=== PATIENT | male | born 1960 | race Caucasian/White ===

== ENCOUNTER 2022-10-22 12:38 | Observation (INO) | payer OTHER, SELFPAY ==
[2022-10-22] VITALS (62 sets, daily range): BP systolic 134–165; BP diastolic 64–89; PULSE 79–101; RESP 12–30; TEMP 37.1–37.5; O2SAT 94–98
--- NOTE | 2022-10-22 | DI.CT_ITS ---
Exam(s) CT CHEST PE CTA EXAM: CT CHEST PE CTA CLINICAL HISTORY: CP. TECHNIQUE: Imaging Protocol: Axial CT angiography was performed with multi-slice acquisition and mu lti-planar reconstructions as well as axial, coronal and sagittal MIP reconstructions. CONTRAST MATERIAL: Intravenous: Omnipaque 350 Contrast volume:100 ml COMPARISON: CR,XR XR CHEST 2V PA LATERAL from 10/22/2022 FINDINGS: Pulmonary Arteries: No evidence of filling defect to suggest pulmonary emboli. Tracheobronchial tree: Patent where visualized. Mediastinum and Mahnaz: No dominant adenopathy or fluid collection. Pulmonary parenchyma: No consolidation or dominant measurable mass. Two adjacent 5 millimeter nodules seen posteriorly, abutting the pleura of the right lower lobe. No suspicious features. Minimal sca rring posterior left lung base. Pleura: No effusion or pneumothorax. Heart: The heart is not dilated. No coronary artery calcifications are seen. Aorta: Thoracic aorta non-dilated. No aneurysm. No dissection. Upper abdomen: Unremarkable. Bones: Unremarkable for age. Tubes, Catheters, and Lines: 9 IMPRESSION: No evidence of pulmonary embolism. Incidental 5 millimeter nodules in the right lower lobe, likely granulomas. If the patient is at hig h risk for lung cancer, follow-up low-dose screening CT could be considered in 1 year. Lowest patien ts, no further follow-up recommended. RADIATION DOSE DELIVERED: 640.58mGy.cm Total DLP DATA REPOSITORY: All CT scans at this facility are submitted to the National Radiology Data Registry (NRDR) Dose Index Registry (DIR) with the [employer] (ACR). RADIATION OPTIMIZATION: All CT scans at this facility use at least one of these dose optimization te chniques: automated exposure control; mA and/or kV adjustment per patient size (includes targeted exa ms where dose is matched to clinical indication); or iterative reconstruction.
--- NOTE | 2022-10-22 12:30 | RT.EKG_ITS ---
APPROVED REPORT Exam: Resting ECG Reason for Exam: chest pain Patient Location: E HR:86 bpm ECG Measurements Heart Rate 86 AXIS NC 195 P 50 QRSd 112 QRS -37 QT 355 T 43 QTc 424 Conclusion Sinus rhythm...normal P axis, V-rate 60- 99 Incomplete left bundle branch block...QRSd>110mS, terminal axis(-90,-1) Borderline ST elevation, anterior leads...ST >0.15mV in V1-V4 Normal sinus rhythm at a rate of 86 with left axis deviation and incomplete left bundle branch block. T wave flattening in aVL. NC and QTc within normal limits. No acute injury pattern. No prior fo r comparison.
--- NOTE | 2022-10-22 13:13 | ED.GENADUL_ITS ---
Discharge Plan Disposition Patient Disposition: Admit to [facility] Discharge Details Clinical Impression: Chest pain, Flattened T wave Primary Care Provider: Maria Antonia,Local ED Provider: Jorge Singh Medical Decision Making This is an overall well-appearing normothermic and not tachycardic 62-year-old male with chest pain shortness of breath while walking concerning for PE versus ACS. No vomiting to suggest increased risk for esophageal rupture. No significant cough nor fevers to suggest pneumonia. No rash to chest to suggest zoster. No tearing quality to suggest aortic dissection. Not hypotensive nor tachycardic to suggest tamponade. Equal breath sounds no trauma so doubt pneumothorax. Patient is on rivaroxaban prophylactically given prior PE. We will plan on obtaining a D-dimer to assess for risk of PE. Patient's pain is concerning also for the possibility of ACS as it radiates up into his jaw. If his troponin is negative we will plan on recommending hospitalization for stress testing given risk factors of obesity and age though ECG is not frankly ischemic. His ECG is concerning for T wave flattening in aVL. HEART SCORE Chest pain Diagnostic Protocol: - [History/Physical/Gestalt: Moderately Suspicious (+1)] - [EKG: Nonspecific repolarization (+1)] - [AGE: 45-65 (+1)] - [RISK FACTORS: 1 - 2 risk factors (+1)] - [TROPONIN: <= normal limit (0)] - TOTAL SCORE: 4 - Risk Factors: obesity 2:41 PM Basic metabolic panel with creatinine at 1.4. No prior for comparison.Very mild hypomagnesemia with a serum magnesium of 1.7 mg/dL. D-dimer negative when adjusted for age. CBC with no anemia or thrombocytopenia noted leukocytosis. Troponin negative. 4:07 PM I spoke with Dr. Haider who graciously accepted the patient for hospitalization. She wanted the patient to be held for repeat troponin. 6:10 PM Repeat troponin negative. We will reach out to hospitalist team to have the patient hospitalized. 7:30 PM I spoke with Dr. Casillas from the hospitalist team who accepted the patient for hospitalization. Chronic conditions affecting the care of the patient: Obesity History obtained from an outside historian: N/A External record review: No record in the [facility] system. Diagnostic interpretations performed by me: [Per my independent interpretation chest x-ray shows:] Concern for possible right-sided pneumonia [Per my independent interpretation EKG shows:] Normal sinus rhythm at a rate of 86 with left axis deviation and incomplete left bundle branch block. T wave flattening in aVL. [place] and QTc within normal limits. No acute injury pattern. No prior for comparison. Medications: N/A Social determinants of health affecting disposition: N/A Management discussed with: Hospitalist Treatment/interventions considered: N/A Response to therapies provided: [place] improved in the ED. HPI General Date/Time Provider Initiated Documentation: 10/22/22 13:13 . HPI Narrative: This is a 62-year-old male with a history of obesity in the emergency department in the setting of shortness of breath with chest pain. Patient notes that he has had a prior saddle PE. He describes currently an aching central chest pain that began this morning while walking. He continues to be adherent with his rivaroxaban for prior PE. He denies history of hypertension hyperlipidemia and diabetes. He has no personal history?nor any family history of significant coronary artery disease. He was not diaphoretic with his pain but he does note that his pain this morning radiated up into his jaw. It was described as aching. It was also pleuritic and worse he was walking. He follows with the [facility]. He was treated for his PE in [place]. He has not taken any falls recently. He denies cough and fevers. He has not been vomiting. General Stated Complaint: Chest Pain MARCOS: 3 PFSH All Active Problems (Updated 10/22/22 @ 16:08 by Jorge Singh MD) Chest pain (Acute) Flattened T wave (Acute) Social History Smoking risk assessment performed?: No Do you feel safe at home: Yes Do you feel safe in your relationship?: Yes Exam Narrative Exam Narrative: General: Well-appearing in no acute distress speaking in complete sentences. Head: Normocephalic, atraumatic. Eye: Pupils equal, round reactive to light. Extraocular eye movements intact. No conjunctival injection. No scleral icterus. Ear, nose, mouth, throat: Grossly normal inspection. Normal voice, handling secretions normally. Neck: Trachea midline. Cardiovascular: Well-perfused distal extremities. Regular rate and rhythm. Respiratory: Nonlabored respiration. Clear lungs bilaterally. Gastrointestinal: Nondistended abdomen. Musculoskeletal: No edema. Moving all 4 extremities spontaneously. Skin: Normal for age and race, grossly normal temperature and turgor. No acute rash. Neurologic: Alert and appropriate, no apparent acute deficits. Psychiatric: Mood and manner are appropriate. Grooming and personal hygiene are appropriate. Course Vital Signs Vital signs: Vital Signs Temperature 37.5 C 10/22/22 12:59 Pulse 85 10/22/22 12:59 Respiratory Rate 18 10/22/22 12:59 Blood Pressure 157/88 H 10/22/22 12:59 Pulse Oximetry 97 10/22/22 12:59 Temperature 37.5 C 10/22/22 12:59 Temperature Source Temporal Artery Scan 10/22/22 12:59 Pulse 85 10/22/22 12:59 Respiratory Rate 18 10/22/22 12:59 Blood Pressure 157/88 H 10/22/22 12:59 Blood Pressure Position Sitting 10/22/22 12:59 Pulse Oximetry 97 10/22/22 12:59 Oxygen Delivery Method Room Air 10/22/22 12:59 Oxygen Flow Rate 0 10/22/22 12:59
--- NOTE | 2022-10-22 13:15 | DI.RAD_ITS ---
Exam(s) XR CHEST 2V PA LATERAL EXAM: XR CHEST 2V PA LATERAL CLINICAL HISTORY: Chest pain TECHNIQUE: 2D digital imaging was performed. COMPARISON: No exams were available for comparison FINDINGS: HEART: Normal size. Aorta: Not dilated. PULMONARY VASCULATURE: Normal. LUNGS: Clear. PLEURAL SPACE: No pleural effusion or pneumothorax. BONE:Unremarkable for age. IMPRESSION: No acute abnormality. DATA REPOSITORY: RADIATION DOSE DELIVERED:
[2022-10-22 13:58] LABS: Abs Immature Grans 0.05 10^3/uL (0.0-0.06); Absolute Basophil Count 0.04 10^3/uL (0.0-0.2); Absolute Eosinophil Count 0.06 10^3/uL (0.0-0.7); Absolute Lymphocyte Count 1.42 10^3/uL (1.2-3.4); Absolute Monocyte Count 0.75 10^3/uL (0.1-0.8); Absolute Neutrophil Count 7.85 10^3/uL (1.2-6.7); Basophils % 0.4; Eosinophils % 0.6; HCT 42.2 % (40.0-50.0); HGB 14.7 g/dL (13.5-17.5); Immature Grans % 0.5; MCH 29.8 pg (27.0-33.0); MCHC 34.8 % (32.0-36.0); MCV 85 fL (80-95); MPV 9.4 fL (8.0-11.0); Monocytes % 7.4; Neutrophils % 77.1; Platelet Count 194 10^3/uL (130-400); RBC 4.94 10^6/uL (4.36-5.78); RDW 13.2 % (11.8-14.1); RDW-SD 40.8 fL; WBC 10.17 10^3/uL (4.4-10.8)
[2022-10-22 14:15] LABS: Anion Gap 8.9 mmol/L (3-11); BUN 16 mg/dL (7-18); CO2 25.1 mmol/L (21.0-32.0); CREATININE 1.4 mg/dL (0.70-1.30); Calcium 9.4 mg/dL (8.5-10.1); Chloride 103 mmol/L (98-107); Estimated GFR 56.13 (mL/min/1.73m2); Glucose 92 mg/dL (74-106); Magnesium 1.7 mg/dL (1.8-2.4); Potassium 4.2 mmol/L (3.5-5.1); Sodium 137 mmol/L (136-145); Troponin I < 50 ng/L (<or=60)
[2022-10-22 14:37] LABS: D-Dimer 599 ng/mlFEU (<500)
--- NOTE | 2022-10-22 15:02 | DI.VRAD_ITS ---
PROCEDURE INFORMATION: Exam: XR Chest Exam date and time: 10/22/2022 2:25 PM Age: 62 years old Clinical indication: Shortness of breath; Other: Chest pain TECHNIQUE: Imaging protocol: Radiologic exam of the chest. Views: 2 views. COMPARISON: No relevant prior studies available. FINDINGS: Lungs: The lung volumes are increased. No consolidations or pulmonary edema. Pleural spaces: Unremarkable. No pleural effusion. No pneumothorax. Heart/Mediastinum: Unremarkable. No cardiomegaly. Bones/joints: Unremarkable. IMPRESSION: No acute cardiopulmonary disease Dictated and Authenticated by: Tommie Tobias MD. Ordering:YONAS Patel MD
[2022-10-22] MEDS: Magnesium Oxide 400 MG TAB PO (15:03)
[2022-10-22 17:47] LABS: Troponin I < 50 ng/L (<or=60)
--- NOTE | 2022-10-22 19:54 | HPE_ITS ---
Date of service: 10/22/22 Time of Service: 19:54 Assessment and Plan Assessment and plan (1) Chest pain: Status: Acute Assessment and plan: CP. Some concern for ACS but negative troponin and (nearly) normal EKG -- obtained during pain -- is reassuring. Will complete troponin series and, if negative, plan on stress test in AM. Otherwise I have no clear explanation of the pain. Given history of PE this remains a consideration, but that the symptoms are atypical, the age-adjusted d-Dimer is normal, the absence of SOB, and the ongoing preventive treatment with DOAC -- all this makes this diagnosis unlikely. However, for completeness sake I think it not unreasonable to exclude this definitively with CTA. GI etiology is also possible, and will give single dose Protonix. History of Present Illness History of Present Illness Chief Complaint: CP Narrative: 62 male with h/o PE approx 7 years [employer], maintained on Xarelto prevention since. Here with some 8-10 hours of CP, came on at 8AM while walking on the road, no SOB, nausea or diaphoresis -- and notably did not fel like the pain he had with his PE. Pain came on gradually and built, more or less entire anterior chest and involving lower neck (ER describes this as radiation but patient states that there was no central location with subsidiary radiation, only that the pain was located throughout the entire area). States pain was an ache, and perhaps somewhat worse with deep breathing. IN ER findings of note for negative CXR, EKG normal save for a flattening of TW AVL (no prior available) and troponin negat rudy x 2. d-Dimer 599, normal age-adjusted range. I was asked to evaluate for admission. Patient states pain has been present all day, in fact is still present, but is now almost gone. Denies recent strain with upper body activity, denies heartburn, denies fever or cough. PFSH All Active Problems Chest pain (Acute) Flattened T wave (Acute) Social History Smoking risk assessment performed?: No Do you feel safe at home: Yes Do you feel safe in your relationship?: Yes Exam Narrative Exam Narrative: 146/74, 85, 37.5, 21, 97% RA. HEENT atraumatic; neck supple, w/o JVD, lungs clear; heart distant/RRR; chest wall non-tender; abdomen soft and NT; extremities 3+ bilateral pedal edema w/o calf tenderness and negative Wendy's, no erythema; neuro Ox3, lucid, moves all 4s Results Labs 10/22/22 13:49 10/22/22 13:49 Labs: Laboratory Results - last 24 hr 10/22/22 10/22/22 10/22/22 13:49 13:49 14:02 WBC 10.17 RBC 4.94 Hgb 14.7 Hct 42.2 MCV 85 MCH 29.8 MCHC 34.8 RDW 13.2 Plt Count 194 MPV 9.4 Immature Gran % 0.5 Neutrophils % 77.1 Lymphocytes % 14.0 Monocytes % 7.4 Eosinophils % 0.6 Basophils % 0.4 Nucleated RBC % 0.0 Absolute Neutrophils 7.85 H Absolute Lymphocytes 1.42 Absolute Monocytes 0.75 Absolute Eosinophils 0.06 Absolute Basophils 0.04 D-Dimer 599 H Sodium 137 Potassium 4.2 Chloride 103 Carbon Dioxide 25.1 Anion Gap 8.9 BUN 16 Creatinine 1.4 H Est GFR (CKD-EPI 2020) 56.13 Glucose 92 Calcium 9.4 Magnesium 1.7 L Troponin I < 50 10/22/22 17:20 WBC RBC Hgb Hct MCV MCH MCHC RDW Plt Count MPV Immature Gran % Neutrophils % Lymphocytes % Monocytes % Eosinophils % Basophils % Nucleated RBC % Absolute Neutrophils Absolute Lymphocytes Absolute Monocytes Absolute Eosinophils Absolute Basophils D-Dimer Sodium Potassium Chloride Carbon Dioxide Anion Gap BUN Creatinine Est GFR (CKD-EPI 2020) Glucose Calcium Magnesium Troponin I < 50 Last Vital Signs Temp 37.5 C 10/22/22 12:59 Pulse 85 10/22/22 19:02 Resp 21 10/22/22 19:40 BP 146/74 H 10/22/22 19:02 Pulse Ox 97 10/22/22 18:32 Time Spent Time spent with Patient: 55-74 minutes Time was spent: preparing to see the patient(eg.review tests), obtaining and/or reviewing separately otained hiistory, ordering medications,tests, procedures, referring, communicating with other health home health care respiratory therapist and indepentently interpreting results
[2022-10-22] MEDS: Omnipaque 350 MG/ML 100 ML BTL IJ (21:00)
[2022-10-22 21:12] LABS: Troponin I < 50 ng/L (<or=60)
--- NOTE | 2022-10-22 22:19 | DI.VRAD_ITS ---
PROCEDURE INFORMATION: Exam: CTA Chest With Contrast Exam date and time: 10/22/2022 8:56 PM Age: 62 years old Clinical indication: Other: Cp TECHNIQUE: Imaging protocol: Computed tomographic angiography of the chest with contrast. 3D rendering (Not supervised by radiologist): MIP and/or 3D reconstructed images were created by the technologist. Radiation optimization: All CT scans at this facility use at least one of these dose optimization techniques: automated exposure control; mA and/or kV adjustment per patient size (includes targeted exams where dose is matched to clinical indication); or iterative reconstruction. Contrast material: OMNIPAQUE 350; Contrast volume: 100 ml; Contrast route: INTRAVENOUS (IV); COMPARISON: CR XR CHEST 2V PA LATERAL 10/22/2022 2:25 PM FINDINGS: Pulmonary arteries: The pulmonary arteries are normal in caliber. No evidence of acute pulmonary embolism. Aorta: The aorta is normal without evidence of aneurysmal dilatation, dissection or occlusive disease. Lungs: There is heterogeneous attenuation of the pulmonary parenchyma, consistent with air trapping from underlying small airways disease. Subpleural pulmonary nodule measuring 5.6 mm best demonstrated on image 48 series 4.For patients at low risk (minimal or absent history of smoking and of other known risk factors), no routine follow-up is indicated. For patients at high risk (history of smoking or of other known risk factors), consider optional CT Chest at 12 months. (Reference: Lianet). There is no evidence of focal pulmonary consolidation. No evidence of pulmonary parenchymal inflammatory changes. There is no evidence of pulmonary masses. Pleural spaces: There is no evidence of pneumothorax. There are no pleural effusions present. Heart: The cardiac structures are normal. The right ventricular to left ventricular ratio is abnormal measuring approximately 1.1. Lymph nodes: There is no evidence of lymphadenopathy. Bones/joints: The spine, sternum, ribs, and pectoral girdles show no evidence of acute abnormality. Soft tissues: There are no soft tissue masses or fluid collections. The upper abdominal viscera are unremarkable. Other findings: The mediastinal structures are normal. IMPRESSION: 1. There is heterogeneous attenuation of the pulmonary parenchyma, consistent with air trapping from underlying small airways disease. 2. Subpleural pulmonary nodule measuring 5.6 mm best demonstrated on image 48 series 4.For patients at low risk (minimal or absent history of smoking and of other known risk factors), no routine follow-up is indicated. For patients at high risk (history of smoking or of other known risk factors), consider optional CT Chest at 12 months. (Reference: Lianet). 3. No evidence of acute pulmonary embolism. 4. No evidence of aortic dissection. REFERENCES: Lianet Santoyo, et al. Guidelines for Management of Incidental Pulmonary Nodules Detected on CT Images: From the Fleischner Society 2017. Radiology. 2017;284(1):228-243. Dictated and Authenticated by: Guido Magaña MD. Ordering:DENISSE Gutierrez MD
--- NOTE | 2022-10-23 | ETT_ITS ---
APPROVED REPORT Exam: Exercise Treadmill Patient Location: In-Patient Room/Bed: [facility] Stress Nurse: Anju Atkinson RN Ordering Provider:JUANA RICHTER, Contact Number: BMI: 43.90 Baseline Rhythm: Sinus Rhythm Indications: chest pain Medical History Medical History: PE Cardiac Medications: Xarelto Allergies: NKA Cardiac Risk Factors: Obesity Previous Cardiac Procedures: None Pretest Chest Pain Characteristics: None Exercise History: Sedentary Physical Disabilities: None Lung Sounds: Clear to auscultation Heart Sounds: Regular Stress Test Details Test: Exercise stress testing was performed using a Dennis protocol. Rest Stress HR Resting HR Supine: 74 bpm Max Heart Rate (APMHR): 156 bpm Resting HR Standin bpm Target HR (85% APMHR): 133 bpm Max HR Achieved: 136 bpm % of APMHR: 87 Recovery HR: 90 bpm HR response to stress: Normal HR response to stress BP Resting BP Supine: 142/84 mmHg Resting BP Standin/92 mmHg Max BP: 198/88 mmHg Recovery BP: 158/74 mmHg BP response to stress: Normal blood pressure response to stress. ECG Resting ECG: Sinus Rhythm Ectopy: None Stress ECG: Sinus Tachycardia ST Change: No significant ST segment changes noted Arrhythmia: None Recovery ECG: Sinus Rhythm Recovery ST Change: No significant ST segment changes noted Recovery Arrhythmia: None Clinical Reason for Termination: Fatigue Stress Symptoms: Neck pain-presenting pain Exercise duration: 4 min12 sec Highest Stage Reached: Stage 2: 2.5 mph at 12% grade. Exercise capacity: 6.06 METs Functional Capacity: Moderately diminished capacity Angina Score: None Vergara Treadmill Score: 3.2 Rate Pressure Product: [id number] Stress ECG Conclusion 1. The resting electrocardiogram showed left anterior fascicular block, late transition 2. Patient exercised on the Dennis protocol and completed a workload of 6.06 METS 3. Normal heart rate and blood pressure response to exercise. Patient achieved 87% of predicted hear t rate for age 4. No electrocardiographic evidence of myocardial ischemia 5. There were no significant dysrhythmias Vergara Treadmill Score is 3.2 which is Moderate risk. Stress Test Summary STAGE Time (mins) Speed (mph) Grade (%) HR BP SpO2 SYMPTOMS METS Supine 74 142/84 94 Standing 76 158/92 94 1 3 1.7 10 119 160/88 90 4.5 1 min recovery 118 198/88 94 3 min recovery 94 192/80 97 neck pain 2/10 6 min recovery 90 158/74 98 neck pain resolved Patient did have neck pain/ache 2/10 during recovery. Reported it was the presenting symptom to the h ospital. Described as an ache, not a muscle pain though, more internal aching than muscle. Pain was resolved after test and was reported as only a tickle with deep inspiration.
[2022-10-23 03:10] VITALS: BP 116/69; PULSE 68; RESP 17; TEMP 37.6; O2SAT 95
[2022-10-23 06:38] VITALS: BP 147/70; PULSE 67; RESP 17; TEMP 36.5; O2SAT 97
[2022-10-23 07:00] VITALS: PULSE 91
[2022-10-23] MEDS: Rivaroxaban 10 MG TABLET PO (07:43)
[2022-10-23 08:00] VITALS: BP 134/76; PULSE 68; RESP 18; TEMP 36.8; O2SAT 95
--- NOTE | 2022-10-23 09:18 | PDOC.CMIN ---
Date of service: 10/23/22 Time of Service: 09:18 Care Management Initial Assmt Initial Assessment REASON FOR HOSPITALIZATION:: chest pain PREVIOUS FUNCTIONAL STATUS/SOCIAL/FAMILY SUPPORTS:: Agus lives alone in a single family home in [place]. It is a 19th century farmhouse that has been in his family since the late 1800s. He is and his lives in [facility]. They have 3 children who live in various parts of the . 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 He is independent at baseline and does not receive any community services. CURRENT FUNCTIONAL STATUS:: Agus was sitting up in bed when CM met with him. He was pleasant and agreeable to conversation and engaged well with CM. Agus explained that he is in the process of renovating the family farmhouse which is almost 200 years old. He shared that he comes from a family where people have lived in many different places, but he has always considered [place] home. Agus reported that he is feeling better and expects to be able to go home later today. He drove himself to the hospital and will drive himself home. ADVANCE DIRECTIVES:: none on file Has patient been provided with info about the portal/API?: Yes Did the patient sign up for the portal?: No CODE STATUS:: Full Code INSURANCE COVERAGE / FINANCIAL ISSUES:: [facility] CURRENT HOME/COMMUNITY SERVICES/EQUIPMENT:: none PRIMARY CARE PHYSICIAN:: none POTENTIAL DISCHARGE NEEDS:: follow up with PCP PATIENT/FAMILY EDUCATION NEEDS:: Review of discharge instructions, follow up plan, limitations, activity, discuss Ask me Three TRANSPORTATION:: via private vehicle with family PLAN:: Anticipate Agus will be discharged home with no new services. He will follow up with the provider assigned and will drive himself home. CM will follow and assess for discharge needs. PFSH All Active Problems Chest pain (Acute) Flattened T wave (Acute) Social History Smoking/Tobacco Use Status: Former Tobacco Use Smoking risk assessment performed?: Yes Do you feel safe at home: Yes Do you feel safe in your relationship?: Yes
[2022-10-23 15:00] VITALS: BP 158/86; PULSE 79; PULSE 80; RESP 18; TEMP 37; O2SAT 97
--- NOTE | 2022-10-23 15:59 | W.PM.DS.N ---
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 Denies recent strain with upper body activity, denies heartburn, denies fever or cough.He stated the pain came on gradually and increased, located generally he stated in his anterior chest and involving lower anterior neck. He described the pain was an ache, and felt worse with deep breathing. In ED findings of note for negative CXR, EKG normal with flattening of T wave in AVL (no prior available) and troponin negative x 3. d-Dimer 599, normal age-adjusted range. CTA negative for PE. He was placed on observation status on the medical floor overnight. His pain mostly resolved over night. He had an exercise stress test and an echocardiogram - results pending on discharge. He does not have a history of CHF, lungs clear, CXR normal, of concern is bilateral lower leg 3+ pitting edema. He does have JA and uses BiPap. He does need this worked up out patient. His CTA showed subpleural pulmonary nodule measuring 5.6 mm best demonstrated on image 48 series. Per the radiologist, patients at low risk (minimal or absent history of smoking and of other known risk factors), no routine follow-up is indicated. For patients at high risk (history of smoking or of other known risk factors), consider optional CT Chest at 12 months. (Reference: Lianet). This will be followed by his PCP. He will follow up with PCP and cardiology. Home Meds and New Rx's Prescriptions: Continued Xarelto 10 mg Tablet 10 mg PO DAILY Rx Instructions: for 35 days Discharge Instructions Instructions: Chest Pain (DC), Edema (DC) Additional Instructions: Continue Xarelto. Follow up with PCP and cardiology regarding echo results and evaluation of your bilateral lower leg edema. Any chest pain, call 911; return to ED immediately. . Stand Alone Forms: Nursing Discharge Form Referrals: Heide De La Cruz MD [ [facility] STAFF PHYSICIAN] - (Please call [phone] 1-2 weeks Follow up hospitalization for chest pain; echo; stress test; bilateral lower leg edema) Maribeth Garcia MD [ [facility] STAFF PHYSICIAN] - 10/25/22 3:20 pm (Next available Bilateral lower leg edema Echo pending) Activity:: Activity as Tolerated Equipment/Supplies:: No Equipment Needed Diet:: As Tolerated Discharge Orders Discharge Orders: Discharge Order (Routine); Ordered 10/23/22 Ordered By: Lara Arenas Discharge Data Discharge Date/Time-TO BE ENTERED AT DEPARTURE: 10/23/22 17:41 DS: Summary Time Spent with Patient providing and/or coordinating discharge services: Greater than 30 minutes Status at Discharge Functional status at discharge: independent ambulation Overall status at discharge: patient is back to baseline Mental Status: mental status grossly normal Speech and Movement: speech and movement normal Mood: congruent mood Affect: normal affect Exam Psych Mental Status: mental status grossly normal Speech and Movement: speech and movement normal Mood: congruent mood Affect: normal affect DS: Data Vitals/I&O Vitals and I&O: Vital Signs Temperature 36.8 C 10/23/22 08:00 Temperature Source Tympanic 10/23/22 08:00 Pulse 68 10/23/22 08:00 Pulse Rhythm Regular 10/23/22 08:00 Pulse 84 10/22/22 20:10 Respiratory Rate 18 10/23/22 08:00 Respiratory Effort Normal, Non-Labored 10/23/22 08:00 Respiratory Depth Normal 10/23/22 08:00 Respiratory Pattern Normal 10/23/22 08:00 Blood Pressure 134/76 10/23/22 08:00 Blood Pressure Mean 90 10/22/22 19:02 Blood Pressure Position Sitting 10/22/22 12:59 Pulse Oximetry 95 10/23/22 08:00 Oxygen Delivery Method Room Air 10/23/22 08:00 Oxygen Flow Rate 0 10/23/22 08:00 Pain Level 2 10/23/22 08:00 Intake & Output 10/22/22 10/23/22 10/23/22 23:59 11:59 23:59 Intake Total 510 / 510 Balance 510 / 510 Weight 155 kg Intake: IV Oral 500 / 500 Other: Urine Appearance Clear Data Completed and Pending Labs on day of discharge: Labs from last 24 hours 10/22/22 10/22/22 20:36 17:20 Troponin I < 50 < 50 PFSH All Active Problems Chest pain (Acute) Flattened T wave (Acute) Social History Smoking/Tobacco Use Status: Former Tobacco Use Smoking risk assessment performed?: Yes Do you feel safe at home: Yes Do you feel safe in your relationship?: Yes Time Spent with Patient Time Spent with Patient: 45-69 minutes Time was spent: preparing to see the patient(eg.review tests), ordering medications,tests, procedures, referring, communicating with other health youth care specialist, indepentently interpreting results, counseling the patient and care coordination
--- NOTE | 2022-10-23 16:05 | DI.US_ITS ---
APPROVED REPORT EXAM: Comprehensive 2D, Doppler, and color-flow Echocardiogram Patient Location: In-Patient Room/Bed: [facility] [place] [employer] Assembler: Alexa Murray RDCS (AE) Indications: CHF, Chest pain Other Information Study Quality: Adequate. Technically limited study due to body habitus. Conclusion Concentric left ventricular hypertrophy. Left ventricular systolic function is normal, EF 55%, no se gmental wall motion abnormalities Normal right ventricular size and systolic function Both atria are normal in size The aortic valve is sclerotic and trileaflet with trace regurgitation Mildly dilated ascending aorta measuring 3.52 cm Wall motion Left Ventricle The left ventricle is normal size. The left ventricular systolic function is normal. The left ventric ular ejection fraction is within the normal range. Mild concentric left ventricular hypertrophy. Ther e is normal LV segmental wall motion. There is no ventricular septal defect visualized. LVEF is 55%. Right Ventricle The right ventricle is normal size. The right ventricular systolic function is normal. Atria The left atrium size is normal. The right atrium size is normal. The interatrial septum is intact wit h no evidence for an atrial septal defect. Aortic Valve The Aortic valve is sclerotic. Aortic valve is trileaflet. No hemodynamically significant valvular a ortic stenosis. Trace aortic regurgitation. Mitral Valve The mitral valve is normal in structure. No evidence of mitral valve stenosis. Trace mitral regurgita tion. Tricuspid Valve The tricuspid valve is normal in structure. There is no tricuspid valve stenosis. Trace tricuspid reg urgitation. Pulmonic Valve The pulmonary valve is normal in structure. There is no pulmonic valvular stenosis. Trace pulmonic re gurgitation. Great Vessels The aortic root is normal in size. The ascending aorta is mildly dilated. Aortic arch is normal in ca liber. IVC is normal in size and collapses >50% with inspiration. Pericardium There is no pericardial effusion. 2D Dimensions IVSD d PLAX 1.36 cm M: 0.6-1.2 LV Vol A2C d MOD 142.9 mL LVPW d PLAX 1.30 cm M: 0.6 - 1.2 LV Vol A4C d MOD 134.9 mL LVID d PLAX 5.18 cm M: 4.2 - 5.8 LA vol/ BSA A2C s A-L 25.9 mL/m2 LVDs 3.60 cm M: 2.5 - 4.0 LA vol/ BSA A4C s A-L 16.6 mL/m2 Ao Root d 2.97 cm M: 3.1 - 3.7 LA Vol/ BSA Biplane s A-L 20.7 mL/m2 RA Area A4C 18.64 cm2 LA Area A4C s MOD 17.43 cm2 RA Vol/ BSA A4C s A-L 18.9 mL/m2 LA Area A2C s MOD 21.80 cm2 Ao Asc Diam d 3.52 cm M: 2.6 - 3.4 LV EF A4C MOD 55.8 % LV EF Teichholz 57.6 % LV EF A2C MOD 55.2 % LVEF (Cotter's) 54.57 % M: 52 - 72 LV EF Biplane MOD 54.6 % LV Volume 94.63 mL M: 62 - 150 SV 75.57 mL LV Volume Index 34.66 mL/m2 M: 34 - 74 SV Index 27.72 mL/m2 LV Vol Biplane MOD 138.5 mL FS 30.50 % M-Mode TAPSE 2.40 cm (M/F) >1.7 LV Diastology MV E' medial 0.075 (>0.07 m/s) E/A Ratio 0.9 LV E/e MED 9.15 (<14) MV E Vmax 0.69 (0.4-1.3 m/s) MV E' lateral 0.099 (>0.1 m/s) MV A Vmax 0.75 (0.4-1.3 m/s) LV E/e LAT 6.90 (<14) MV E/A Ratio 0.87 MV E/E' medial 9.18 MV E/E' lateral 6.92 Aortic Valve LVOT Area 3.14 cm2 AoV Area Vmax 1.60 cm2 LVOT Vmax 1.13 m/s AoV Area/ BSA (Vmax) 0.59 cm2/m2 LVOT Mean Ajay. 0.73 m/s JORDAN Mean Ajay. 1.44 cm2 LVOT Peak Grad 5.1 mmHg JORDAN Mean Ajay. Index 0.53 cm2/m2 LVOT Mean Grad 2.5 mmHg LVOT VTI 0.229 m LVOT Diam s 2.00 cm AoV Vmax 2.22 m/s Velocity Ratio 0.51 AoV Mean Ajay. 1.59 m/s AoV Peak Grad 19.6 mmHg LVOT SV 71.96 mL AoV Mean Grad 11.3 mmHg AoV VTI 0.426 m AoV Area VTI 1.69 cm2 AoV Area/ BSA (VTI) 0.62 cm/m2 Mitral Valve MV DT 238 (160-240 msec) MV PHT 69 msec MV Area PHT 3.19 cm2 Pulmonary Valve PV Vmax 1.50 (0.5-1.5 m/s) RVOT Peak Gr. 1.35 mmHg PV Peak Grad 9.0 mmHg RVOT Mean Gr. 0.65 mmHg PV Mean Grad 4.9 mmHg RVOT VTI 0.120 m PV VTI 0.369 m RVOT Vmax 0.58 m/s
== END 2022-10-23 17:41 | disposition home or self-care (01) ==
LOC: ER 19:16 → MS 21:26
PROVIDERS: Admitting Provider General Practice; Emergency Provider Emergency Medicine; Visit Provider General Practice
DX: R07.89 Other chest pain (principal); R06.02 Shortness of breath; R94.31 Abnormal electrocardiogram [ECG] [EKG]; R91.1 Solitary pulmonary nodule; Z86.711 Personal history of pulmonary embolism; Z79.01 Long term (current) use of anticoagulants
CPT/HCPCS: 71275; 80048; 93005; 99285; 71046; 83735; 84484; 85025; 85379; 93010; 93017; 93306; 99222; 99239; G0378; J3490

== ENCOUNTER 2023-04-12 03:16 | Outpatient (CLI) | payer OTHER, SELFPAY ==
[2023-04-12 16:22] LABS: Hemoglobin A1C 5.8 % (<5.7)
[2023-04-12 17:20] LABS: ALT 31 U/L (16-63); AST 16 U/L (15-37); Albumin 4.5 g/dL (3.4-5.0); Alkaline Phosphatase 85 U/L (46-116); Anion Gap 14.6 mmol/L (3-11); BUN 25 mg/dL (7-18); Bilirubin, Total 0.6 mg/dL (0.2-1.0); CO2 24.4 mmol/L (21.0-32.0); CREATININE 1.5 mg/dL (0.70-1.30); Calcium 9.9 mg/dL (8.5-10.1); Calculated LDL 105 mg/dL (<100); Chloride 99 mmol/L (98-107); Cholesterol 201 mg/dL (<200); Estimated GFR 51.35 (mL/min/1.73m2); Glucose 97 mg/dL (74-106); HDL Cholesterol 45 mg/dL (40-60); Potassium 3.8 mmol/L (3.5-5.1); Sodium 138 mmol/L (136-145); Total Protein 7.9 g/dL (6.4-8.2); Triglyceride 258 mg/dL (<150)
== END 2023-04-12 03:17 | disposition home or self-care (01) ==
PROVIDERS: PCP Family Medicine; Visit Provider Family Medicine
DX: I11.9 Hypertensive heart disease without heart failure (principal); Z00.00 Encounter for general adult medical examination without abnormal findings; Z13.6 Encounter for screening for cardiovascular disorders; E66.01 Morbid (severe) obesity due to excess calories; R73.01 Impaired fasting glucose; Z68.41 Body mass index [BMI] 40.0-44.9, adult
CPT/HCPCS: 36415; 80053; 80061; 83036

== ENCOUNTER 2025-01-29 08:31 | Outpatient (CLI) | payer MEDICARE, OTHER, SELFPAY ==
--- NOTE | 2025-01-29 06:45 | DI.RAD_ITS ---
Exam(s) XR HIP RT COMPLETE AP PELVIS EXAM: XR HIP RT COMPLETE AP PELVIS CLINICAL HISTORY: right sided pain M25.551 PAIN RT HIP Z98.890 POSTPROCEDURAL M25.561. TECHNIQUE: 2D digital imaging was performed. Two views COMPARISON: No exams were available for comparison FINDINGS: BONES: No acute fracture is present. No bony destructive lesion is seen. JOINTS: No dislocation present. There is severe narrowing of the right hip joint space, with a [id number] appearance. There is some flattening of the superior femoral head. There is prominent periarticular spurring. There is a left hip prosthesis which is unremarkable. The SI joints and pubic symphysis show minimal degenerative changes. SOFT TISSUE: Normal. IMPRESSION: Severe degenerative changes of the right hip. DATA REPOSITORY: RADIATION DOSE DELIVERED:
--- NOTE | 2025-01-29 06:45 | DI.RAD_ITS ---
Exam(s) XR KNEE RT 3V AP,LAT,SERGIO EXAM: XR KNEE RT 3V AP,LAT,SERGIO CLINICAL HISTORY: right sided painM25.561 PAIN RT KNEE Z98.890 POSTPROCEDURAL M25.551. TECHNIQUE: 2D digital imaging was performed. Three views. COMPARISON: No exams were available for comparison FINDINGS: BONES: No acute fracture is present. No bony destructive lesion is seen. There are enthesophytes at the patella. JOINTS: There is severe narrowing of the medial femoral tibial joint space, with a [id number] appearance. There is prominent periarticular spurring. There is widening of the lateral femoral tibial joint space and varus angulation at the knee. There is prominent spurring at the patellofemoral joint. No joint effusion is seen. SOFT TISSUE: Diffuse soft tissue edema. IMPRESSION: Severe degenerative changes of the medial femoral tibial joint. DATA REPOSITORY: RADIATION DOSE DELIVERED:
== END 2025-01-29 08:51 ==
LOC: DI 08:31
PROVIDERS: PCP Family Medicine; Visit Provider Family Medicine
DX: M16.11 Unilateral primary osteoarthritis, right hip (principal); M17.11 Unilateral primary osteoarthritis, right knee; Z98.890 Other specified postprocedural states
CPT/HCPCS: 73562; 73502

== ENCOUNTER 2025-02-10 10:30 | Outpatient (CLI) | payer MEDICARE, OTHER, SELFPAY ==
--- NOTE | 2025-02-10 14:45 | DI.US_ITS ---
APPROVED REPORT EXAM: Comprehensive 2D, Doppler, and color-flow Echocardiogram Patient Location: Out-Patient [place] [facility] Manager: Blu Prather RDCS (AE) Indications: Hx LVH Other Information Study Quality: Fair. Technically limited study due to body habitus. Conclusion Mild concentric left ventricular hypertrophy. Ejection fraction is 60 to 65%. Wall motion is normal Normal right ventricular size and function Both atria are normal in size Aortic valve is mildly sclerotic and probably trileaflet. There is mild aortic stenosis. Highest mean gradient is 21 mmHg. Calculated aortic valve area is 1.9 cm?? Wall motion Left Ventricle The left ventricle is normal size. The left ventricular systolic function is normal. The left ventricular ejection fraction is within the normal range. Mild concentric left ventricular hypertrophy. There is normal LV segmental wall motion. There is no ventricular septal defect visualized. LVEF is 60-65%. Right Ventricle The right ventricle is normal size. The right ventricular systolic function is normal. Atria The left atrium size is normal. The right atrium size is normal. The interatrial septum is intact with no evidence for an atrial septal defect. Aortic Valve Mildly sclerotic Aortic valve is probably trileaflet. Mild aortic stenosis. Peak aortic valve gradient is 34.23 mmHg. Highest mean aortic valve gradient is 21.26 mmHg. Calculated JORDAN by the continuity equation is 1.9 cm2. No aortic regurgitation is present. Mitral Valve The mitral valve is normal in structure. No evidence of mitral valve stenosis. There is no mitral valve regurgitation noted. Tricuspid Valve The tricuspid valve is normal in structure. There is no tricuspid valve stenosis. Trace tricuspid regurgitation. Pulmonic Valve The pulmonary valve is normal in structure. There is no pulmonic valvular stenosis. There is no pulmonic valvular regurgitation. Great Vessels The aortic root is normal in size. The ascending aorta is normal in size. Aortic arch is normal in caliber. IVC is normal in size and collapses >50% with inspiration. Pericardium There is no pericardial effusion. 2D Dimensions IVSD d PLAX 1.37 cm M: 0.6-1.2 Ao Root d 3.27 cm M: 3.1 - 3.7 LVPW d PLAX 1.38 cm M: 0.6 - 1.2 Ao Asc Diam d 3.25 cm M: 2.6 - 3.4 LVID d PLAX 5.31 cm M: 4.2 - 5.8 LVDs 3.54 cm M: 2.5 - 4.0 LV EF Teichholz 61.6 % FS 33.36 % LV EDV (Teich) 136.2 mL LV ESV (Teich) 52.3 mL Stroke Vol Index (Teich) 31.76 M-Mode TAPSE 2.74 cm (M/F) >1.7 Auto EF LV EDV A4C 174.4 mL LV EDV A2C 139.4 mL LV EDV BP 155.3 mL LV ESV A4C 63.0 mL LV ESV A2C 48.7 mL LV ESV BP 56.3 mL LVEF(%) A4C 63.9 % LVEF(%) A2C 65.0 % LVEF(%) BP 63.8 % LV SV A4C 111.4 ml LV SV A2C 90.6 ml LV SV BP 99.0 ml LV CO A4C 7.8 L/min LV CO A2C 6.4 L/min LV CO BP 7.1 L/min HR A4C 70.45 BPM HR A2C 71.15 BPM LV EDV Index (BP) LA Volume LA Length A4C 5.5 cm LA Length A2C 4.9 cm LA Area A4C s 11.99 cm2 LA Area A2C s 11.89 cm2 LA Vol A4C A-L 22.12 mL LA Vol A2C A-L 24.47 mL LA Vol Biplane A-L 24.7 mL LA Vol/BSA A4C A-L LA Vol/BSA A2C A-L LA Vol/BSA BP A-L 9.3 mL/m2 LA Vol A4C MOD 21.8 mL LA Vol A2C MOD 22.8 mL LA Vol BP MOD 22.8 mL RA Volume RA Area A4C 9.6 cm2 RA ESV A4C (A-L) 20.0mL RA Vol/BSA A4C A-L RA Length A4C 3.9 cm RA ESV A4C (MOD) 20.0mL LV Diastology MV E' medial 0.087 (>0.07 m/s) MV E Vmax 0.86 (0.4-1.3 m/s) MV E/E' MED 9.89 (<14) MV A Vmax 0.95 (0.4-1.3 m/s) MV E' lateral 0.100 (>0.1 m/s) E/A Ratio 0.9 MV E/E' LAT 8.57 (<14) MV E' Average 0.094 m/s MV E/E'(average) 9.18 Aortic Valve AoV Vmax 2.93 m/s LVOT Vmax 1.22 m/s AoV Peak Grad 34.2 mmHg LVOT Peak Grad 6.0 mmHg AoV Area (Vmax) 1.60 cm2 LVOT VTI 0.265 m AoV VTI 0.531 m LVOT Mean Grad 3.6 mmHg AoV Mean Ajay. 2.19 m/s LVOT SV 101.34 mL AoV Mean Grad 21.3 mmHg LVOT Diam s 2.20 cm AoV Area (VTI) 1.91 cm2 AV Regurg Peak Gr. 34.23 mmHg Velocity Ratio 0.42 Mitral Valve MV DT 241 (160-240 msec) Pulmonary Valve PV Vmax 1.00 (0.5-1.5 m/s) RVOT Vmax 0.68 m/s PV Peak Grad 4.0 mmHg RVOT Peak Gr. 1.9 mmHg PV Mean Ajay 0.67 m/s RVOT VTI 0.143 m PV Mean Grad 2.1 mmHg RVOT Mean Gr. 1.0 mmHg
== END 2025-02-10 10:50 ==
LOC: DI 10:30
PROVIDERS: PCP Family Medicine; Visit Provider Internal Medicine Cardiovascular Disease
DX: I11.9 Hypertensive heart disease without heart failure (principal)
CPT/HCPCS: 93306

== ENCOUNTER → 2025-04-13 13:00 | Outpatient (BNVA) | payer MEDICARE, OTHER, SELFPAY | PROVIDERS: PCP Family Medicine; Referring Provider Family Medicine; Visit Provider Student in an Organized Health Care Education/Training Program | DX: M17.11 Unilateral primary osteoarthritis, right knee (principal); M16.11 Unilateral primary osteoarthritis, right hip; Z96.642 Presence of left artificial hip joint | CPT/HCPCS: 99214; 20610; J1010 ==